=== PATIENT | male | born 2000 | race Caucasian/White ===

== ENCOUNTER 2022-11-29 22:08 | Emergency (ER) | payer SELFPAY ==
[~2022-11-29] VITALS: Ht 190.5 cm; Wt 127.3 kg
[2022-11-30 01:05] VITALS: BP 144/108
[2022-11-30] MEDS ORDERED: acetaminophen 325mg tablet PO ONE (01:30)
== END 2022-11-30 02:41 | disposition home or self-care (01) ==
LOC: ER 22:10
DX: J02.9 Acute pharyngitis, unspecified (principal); R05.9 Cough, unspecified; H92.03 Otalgia, bilateral
CPT/HCPCS: 87081; 87880; 99283